=== PATIENT | female | born 1980 ===

== ENCOUNTER 2020-12-19 11:45 | Inpatient (IN) | payer OTHER ==
[~2020-12-19] VITALS: Ht 149.9 cm; Wt 2.3 kg
[2020-12-26] MEDS ORDERED: PRENATAL CAPLE1 EAC1 PO (07:12)
[2020-12-26] MEDS ORDERED: IRON325 MG PO (07:13)
== END 2020-12-29 12:43 | disposition home or self-care (01) | DRG 785 ==
LOC: O/R 12-26 06:38 → SURG-SUITE 12-26 06:38 → OB/GYN 12-26 08:30 → SURG-SUITE 12-26 15:29
PROVIDERS: ADMIT Obstetrics & Gynecology; ATTEND Obstetrics & Gynecology
PROC: 0UB70ZZ Excision of Bilateral Fallopian Tubes, Open Approach (ICD-10-PCS; 2020-12-26)
PROC: 4A1HXFZ Monitoring of Products of Conception, Cardiac Rhythm, External Approach (ICD-10-PCS; 2020-12-26)
PROC: 10D00Z1 Extraction of Products of Conception, Low, Open Approach (ICD-10-PCS; principal; 2020-12-26 08:30)
DX: O34.211 Maternal care for low transverse scar from previous cesarean delivery (principal); Z30.2 Encounter for sterilization; Z37.0 Single live birth; Z3A.39 39 weeks gestation of pregnancy

== ENCOUNTER 2020-12-21 12:40 | Outpatient (CLI) | payer OTHER | END 2020-12-21 13:44 | disposition home or self-care (01) | LOC: NST 12:40 | PROVIDERS: ATTEND Obstetrics & Gynecology | DX: Z34.83 Encounter for supervision of other normal pregnancy, third trimester (principal) ==